=== PATIENT | male | born 1960 | race Caucasian/White ===

== ENCOUNTER 2016-12-04 08:00 | Outpatient (CLI) | payer BC | END 2016-12-04 23:59 | disposition home or self-care (01) | DX: R73.09 Other abnormal glucose (principal) ==

== ENCOUNTER 2016-12-04 09:05 | Outpatient (CLI) | payer BC | END 2016-12-04 09:06 | disposition home or self-care (01) | DX: I26.99 Other pulmonary embolism without acute cor pulmonale (principal); Z79.01 Long term (current) use of anticoagulants; R94.5 Abnormal results of liver function studies; E78.2 Mixed hyperlipidemia ==

== ENCOUNTER 2016-12-16 10:44 | Day surgery (SDC) | payer BC ==
[2016-12-16] MEDS ORDERED: MIDAZOLAM 2 MG/2 ML VIAL IVP ONE (12:20)
[2016-12-16] MEDS ORDERED: fentaNYL 250 MCG/5 ML VIAL IVP ONE (12:20)
[2016-12-16] MEDS ORDERED: LACTATED RINGERS 500 ML IV ONE (12:26)
[2016-12-16] MEDS ORDERED: BENZOCAINE/TETRACAINE/BUTAMBEN SPRAY 56 GM TOP ONE (12:26)
[2016-12-16] MEDS ORDERED: LIDO GARGLE 30 ML BOTTLE PO ONE (12:27)
== END 2016-12-16 10:45 | disposition home or self-care (01) ==
PROC: 0DJ08ZZ Inspection of Upper Intestinal Tract, Via Natural or Artificial Opening Endoscopic (ICD-10-PCS; principal; 2016-12-16 12:15)
DX: K20.8 Other esophagitis (principal); K21.9 Gastro-esophageal reflux disease without esophagitis; I10 Essential (primary) hypertension; Z86.711 Personal history of pulmonary embolism; Z85.47 Personal history of malignant neoplasm of testis; Z79.01 Long term (current) use of anticoagulants; Z88.5 Allergy status to narcotic agent
CPT/HCPCS: 43235; 85610; A9270; J7120

== ENCOUNTER 2016-12-21 08:20 | Inpatient (IN) | payer BC ==
[2016-12-21] MEDS ORDERED: ACETAMINOPHEN 325 MG TABLET PO STA (09:16)
[2016-12-21] MEDS ORDERED: SODIUM CHLORIDE 0.9% 1,000 ML IV ONE (09:16)
[2016-12-21] MEDS ORDERED: ACETAMINOPHEN 325 MG TABLET PO ONE (09:18)
[2016-12-21] MEDS ORDERED: VANCOMYCIN INJ 1 GM in SODIUM CHLORIDE 0.9% 250 ML IV STA (11:19)
[2016-12-21] MEDS ORDERED: PIPERACILLIN/TAZOBACTAM 3.375 GM in SODIUM CHLORIDE 0.9% MINIBAG 100 ML IV STA (11:19)
[2016-12-21] MEDS ORDERED: ONDANSETRON 4 MG/2 ML VIAL IVP PRN (11:58)
[2016-12-21] MEDS ORDERED: SODIUM CHLORIDE FLUSH 0.9% 10 ML SYRINGE IVP PRN (11:58)
[2016-12-21] MEDS ORDERED: HYDROmorphone 1 MG/ML SYRINGE IVP PRN (11:58)
[2016-12-21] MEDS ORDERED: ZOLPIDEM 5 MG TABLET PO PRN (11:58)
[2016-12-21] MEDS ORDERED: VANCOMYCIN 1 GM VIAL ONE (12:15)
[2016-12-21] MEDS ORDERED: VANCOMYCIN PER PHARMACY 1 GM in SODIUM CHLORIDE 0.9% 250 ML IV SCH (13:00)
[2016-12-21] MEDS: SODIUM CHLORIDE 0.9% 1,000 ML IV SCH ×2 (13:53→21:21)
[2016-12-21] MEDS ORDERED: VANCOMYCIN INJ 500 MG in SODIUM CHLORIDE 0.9% MINIBAG 100 ML IV SCH (14:00)
[2016-12-21] MEDS ORDERED: LOSARTAN 50 MG TABLET PO SCH (14:00)
[2016-12-21] MEDS ORDERED: WARFARIN 5 MG TABLET PO SCH (14:00)
[2016-12-21] MEDS: SODIUM CHLORIDE FLUSH 0.9% 10 ML SYRINGE IVP SCH ×2 (14:07→22:23)
[2016-12-21] MEDS ORDERED: PANTOPRAZOLE 40 MG TABLET PO SCH (15:00)
[2016-12-21] MEDS: PANTOPRAZOLE 40 MG TABLET PO SCH (15:44)
[2016-12-21] MEDS: LOSARTAN 50 MG TABLET PO SCH (16:56)
[2016-12-21] MEDS: WARFARIN 5 MG TABLET PO SCH (16:56)
[2016-12-21] MEDS: PIPERACILLIN/TAZOBACTAM 4.5 GM in SODIUM CHLORIDE 0.9% MINIBAG 100 ML IV SCH (21:16)
[2016-12-22] MEDS: PIPERACILLIN/TAZOBACTAM 4.5 GM in SODIUM CHLORIDE 0.9% MINIBAG 100 ML IV SCH ×4 (00:30→19:41)
[2016-12-22] MEDS: VANCOMYCIN INJ 1 GM, VANCOMYCIN INJ 500 MG in SODIUM CHLORIDE 0.9% 500 ML IV SCH ×2 (02:20→14:57)
[2016-12-22] MEDS: ACETAMINOPHEN 325 MG TABLET PO PRN ×2 (05:25→16:43)
[2016-12-22] MEDS: SODIUM CHLORIDE FLUSH 0.9% 10 ML SYRINGE IVP SCH ×3 (05:26→21:12)
[2016-12-22] MEDS: PANTOPRAZOLE 40 MG TABLET PO SCH (07:00)
[2016-12-22] MEDS: SODIUM CHLORIDE 0.9% 1,000 ML IV SCH ×2 (09:17→12:45)
[2016-12-22] MEDS: POLYETHYLENE GLYCOL 3350 17 GM PACKET PO SCH (09:18)
[2016-12-22] MEDS: LOSARTAN 50 MG TABLET PO SCH (16:41)
[2016-12-22] MEDS: WARFARIN 5 MG TABLET PO SCH (16:41)
[2016-12-23] MEDS: PIPERACILLIN/TAZOBACTAM 4.5 GM in SODIUM CHLORIDE 0.9% MINIBAG 100 ML IV SCH ×2 (00:04→06:14)
[2016-12-23] MEDS: VANCOMYCIN INJ 1 GM, VANCOMYCIN INJ 500 MG in SODIUM CHLORIDE 0.9% 500 ML IV SCH (01:59)
[2016-12-23] MEDS: SODIUM CHLORIDE 0.9% 1,000 ML IV SCH (01:59)
[2016-12-23] MEDS: PANTOPRAZOLE 40 MG TABLET PO SCH (06:13)
[2016-12-23] MEDS: SODIUM CHLORIDE FLUSH 0.9% 10 ML SYRINGE IVP SCH (06:14)
[2016-12-23] MEDS: POLYETHYLENE GLYCOL 3350 17 GM PACKET PO SCH (09:02)
[2016-12-23] MEDS ORDERED: WARFARIN 2.5 MG TABLET PO SCH ×2 (14:00→17:00)
== END 2016-12-23 10:00 | disposition home or self-care (01) | DRG 603 ==
DX: L03.116 Cellulitis of left lower limb (principal); I82.509 Chronic embolism and thrombosis of unspecified deep veins of unspecified lower extremity; I10 Essential (primary) hypertension; K21.9 Gastro-esophageal reflux disease without esophagitis; M1A.9XX0 Chronic gout, unspecified, without tophus (tophi); Z86.711 Personal history of pulmonary embolism; Z79.01 Long term (current) use of anticoagulants; Z80.1 Family history of malignant neoplasm of trachea, bronchus and lung; Z82.49 Family history of ischemic heart disease and other diseases of the circulatory system

== ENCOUNTER 2018-05-14 08:00 | Outpatient (CLI) | payer BC ==
[2018-05-14 13:13] LABS: BASOPHILS % (AUTO) 0.7 %; EOSINOPHILS # (AUTO) 0.1 10^3/uL (0.0-0.7); EOSINOPHILS % (AUTO) 2.1 %; HGB - HEMOGLOBIN 16.4 g/dL (14.0-18.0); LYMPHOCYTES # (AUTO) 1.8 10^3/uL (1.5-3.5); LYMPHOCYTES % (AUTO) 26.6 %; MEAN CORPUSCULAR HEMOGLOBIN 30.2 pg (27.0-31.0); MEAN CORPUSCULAR HGB CONC 34.4 g/dL (32.0-36.0); MEAN CORPUSCULAR VOLUME 87.6 fL (80.0-94.0); MONOCYTES # (AUTO) 0.3 10^3/uL (0.0-1.0); NEUTROPHILS # (AUTO) 4.4 10^3/uL (1.5-6.6); NEUTROPHILS % (AUTO) 65.6 %; PLT - PLATELET COUNT 213 10^3/uL (130-450); RED BLOOD COUNT 5.44 10^6/uL (4.70-6.10); RED CELL DISTRIBUTION WIDTH 13.2 % (12.0-15.0); WHITE BLOOD COUNT 6.6 x10^3/uL (4.8-10.8)
[2018-05-14 13:24] LABS: ALBUMIN 4.6 g/dL (3.2-5.5); ALBUMIN/GLOBULIN RATIO 1.3 (1.0-2.2); BILIRUBIN,TOTAL 1.3 mg/dL (0.2-1.0); CALCIUM 9.4 mg/dL (8.5-10.3); TOTAL PROTEIN 8.1 g/dL (6.7-8.2)
[2018-05-14 13:49] LABS: HB2 TOTAL 17.8 g/dL; HEMOGLOBIN A1C 1.27 g/dL; HEMOGLOBIN A1C % 8.7 % (4.6-6.2)
[2018-05-15 12:36] LABS: HEPATITIS C ANTIBODY NON-REACTIVE (NON-REACTIVE)
== END 2018-05-14 08:01 ==
LOC: LAB.R 08:00
PROVIDERS: ATTEND Internal Medicine
DX: R73.9 Hyperglycemia, unspecified (principal); Z00.00 Encounter for general adult medical examination without abnormal findings; E78.5 Hyperlipidemia, unspecified; Z79.01 Long term (current) use of anticoagulants; M10.9 Gout, unspecified; I26.99 Other pulmonary embolism without acute cor pulmonale; Z79.82 Long term (current) use of aspirin
CPT/HCPCS: 80053; 83036; 84153; 84443; 85025; 86803

== ENCOUNTER 2018-07-03 09:41 | Outpatient (CLI) | payer BC | END 2018-07-03 09:42 | disposition home or self-care (01) | LOC: NS 09:41 | PROVIDERS: ATTEND Internal Medicine | DX: Z71.3 Dietary counseling and surveillance (principal); E11.65 Type 2 diabetes mellitus with hyperglycemia; Z79.84 Long term (current) use of oral hypoglycemic drugs; Z68.28 Body mass index [BMI] 28.0-28.9, adult | CPT/HCPCS: 97802 ==

== ENCOUNTER 2018-07-14 13:28 | Outpatient (CLI) | payer BC ==
[2018-07-14 17:46] LABS: BASOPHILS % (AUTO) 0.5 %; EOSINOPHILS # (AUTO) 0.1 10^3/uL (0.0-0.7); EOSINOPHILS % (AUTO) 2.1 %; HGB - HEMOGLOBIN 15.1 g/dL (14.0-18.0); LYMPHOCYTES # (AUTO) 1.6 10^3/uL (1.5-3.5); LYMPHOCYTES % (AUTO) 26.3 %; MEAN CORPUSCULAR HEMOGLOBIN 30.7 pg (27.0-31.0); MEAN CORPUSCULAR HGB CONC 35.4 g/dL (32.0-36.0); MEAN CORPUSCULAR VOLUME 86.7 fL (80.0-94.0); MEAN PLATELET VOLUME 7.7 fL (7.4-11.4); MONOCYTES # (AUTO) 0.4 10^3/uL (0.0-1.0); MONOCYTES % (AUTO) 6.2 %; NEUTROPHILS % (AUTO) 64.9 %; PLT - PLATELET COUNT 189 10^3/uL (130-450); RED BLOOD COUNT 4.92 10^6/uL (4.70-6.10); RED CELL DISTRIBUTION WIDTH 13.5 % (12.0-15.0); WHITE BLOOD COUNT 6.2 x10^3/uL (4.8-10.8)
[2018-07-14 18:24] LABS: ALBUMIN 4.7 g/dL (3.2-5.5); ALBUMIN/GLOBULIN RATIO 1.9 (1.0-2.2); BILIRUBIN,TOTAL 1.3 mg/dL (0.2-1.0); CALCIUM 8.8 mg/dL (8.5-10.3); CREATININE 0.8 mg/dL (0.6-1.2); TOTAL PROTEIN 7.2 g/dL (6.7-8.2)
[2018-07-14 18:47] LABS: HB2 TOTAL 16.4 g/dL; HEMOGLOBIN A1C 0.76 g/dL; HEMOGLOBIN A1C % 6.4 % (4.6-6.2)
[2018-07-15 14:21] LABS: HEPATITIS C ANTIBODY NON-REACTIVE (NON-REACTIVE)
== END 2018-07-14 13:29 | disposition home or self-care (01) ==
LOC: LAB.F 13:28
PROVIDERS: ATTEND Internal Medicine
DX: Z00.00 Encounter for general adult medical examination without abnormal findings (principal); R73.9 Hyperglycemia, unspecified; E78.5 Hyperlipidemia, unspecified; Z79.01 Long term (current) use of anticoagulants; M10.9 Gout, unspecified; I26.99 Other pulmonary embolism without acute cor pulmonale; Z12.5 Encounter for screening for malignant neoplasm of prostate; Z72.89 Other problems related to lifestyle
CPT/HCPCS: 36415; 80053; 83036; 84153; 84443; 85025; 86803

== ENCOUNTER 2018-10-12 10:12 | Outpatient (CLI) | payer BC ==
[2018-10-12 20:24] LABS: HB2 TOTAL 17.2 g/dL; HEMOGLOBIN A1C 0.61 g/dL; HEMOGLOBIN A1C % 5.4 % (4.6-6.2)
== END 2018-10-12 10:13 | disposition home or self-care (01) ==
LOC: LAB.F 10:12
PROVIDERS: ATTEND Internal Medicine
DX: Z00.00 Encounter for general adult medical examination without abnormal findings (principal); E11.9 Type 2 diabetes mellitus without complications
CPT/HCPCS: 36415; 82306; 83036

== ENCOUNTER 2018-12-02 14:54 | Outpatient (CLI) | payer BC | END 2018-12-02 14:55 | disposition home or self-care (01) | LOC: LAB.F 14:54 | PROVIDERS: ATTEND Internal Medicine | DX: I26.99 Other pulmonary embolism without acute cor pulmonale (principal); I80.10 Phlebitis and thrombophlebitis of unspecified femoral vein; Z79.01 Long term (current) use of anticoagulants | CPT/HCPCS: 85610 ==

== ENCOUNTER 2019-01-01 10:41 | Outpatient (CLI) | payer BC | END 2019-01-01 10:42 | disposition home or self-care (01) | LOC: LAB 10:41 | PROVIDERS: ATTEND Internal Medicine | DX: Z86.718 Personal history of other venous thrombosis and embolism (principal); Z79.01 Long term (current) use of anticoagulants | CPT/HCPCS: 85610 ==